=== PATIENT | female | born 1945 ===

== ENCOUNTER 2020-09-05 06:12 | Emergency (ER) | END 2020-09-05 06:20 | LOC: ERS 06:12 | DX: Z46.59 Encounter for fitting and adjustment of other gastrointestinal appliance and device (principal); E03.9 Hypothyroidism, unspecified; Z79.82 Long term (current) use of aspirin; Z79.899 Other long term (current) drug therapy | CPT/HCPCS: 43762 ==

== ENCOUNTER 2021-08-25 14:14 | Inpatient (IN) | payer MEDICARE, MEDICAID ==
[2021-08-25] MEDS ORDERED: Iopamidol 30 ML ONE (18:17)
[2021-08-25] MEDS ORDERED: fentaNYL Citrate/PF 100 MCG/2 ML SYRINGE ONE (18:27)
[2021-08-25] MEDS ORDERED: PROPOFOL 200 MG/20 ML VIAL ONE (18:35)
[2021-08-25] MEDS ORDERED: Ondansetron PF 4 MG/2 ML Vial ONE (18:35)
[2021-08-25] MEDS ORDERED: Dexamethasone 20 MG/5 ML VIAL ONE (18:35)
[2021-08-25] MEDS ORDERED: Lidocaine 1% PF 5 ML VIAL ONE (18:35)
[2021-08-25] MEDS ORDERED: PHENYLEPHRINE-NS 100 MCG/ML 10 ML SYRINGE ONE (18:35)
[2021-08-25] MEDS ORDERED: Metoprolol Tartrate 5 MG/5 ML VIAL ONE (21:02)
[2021-08-25] MEDS ORDERED: Metoprolol Tartrate 5 MG/5 ML VIAL IVP PRN (21:10)
[2021-08-25] MEDS ORDERED: Ondansetron PF 4 MG/2 ML Vial IVP PRN (21:15)
[2021-08-25] MEDS ORDERED: Ondansetron ODT 4 MG TAB PO PRN (21:15)
[2021-08-25] MEDS ORDERED: Acetaminophen 650 MG Suppository PR PRN (21:15)
[2021-08-25] MEDS ORDERED: Sodium Chloride 0.9% 1,000 ML IV SCH (21:30)
[2021-08-25] MEDS ORDERED: Piperacillin/Tazobactam 3.375 GM in Sodium Chloride 0.9% 100 ML IVPB SCH (23:59)
[2021-08-26] MEDS ORDERED: Metoprolol Tartrate 5 MG/5 ML VIAL IVP SCH (03:15)
[2021-08-26] MEDS ORDERED: Piperacillin/Tazobactam 3.375 GM in Sodium Chloride 0.9% 100 ML IVPB SCH (04:00)
[2021-08-26 04:49] LABS: Anion Gap 17 mmol/L (10-20); BUN (Urea Nitrogen) 51 mg/dL (9.8-20.1); Calc. Creatinine Clearance 25 mL/min (70-130); Carbon Dioxide 15 mmol/L (23-31); Chloride 115 mmol/L (98-107); Glucose 111 mg/dL (83-110); Potassium 5.6 mmol/L (3.5-5.1); Sodium 141 mmol/L (136-145)
[2021-08-26 05:15] LABS: Band 21 % (5-11); Hemoglobin 9.3 g/dL (12.0-16.0); Lymphocytes 1 % (21-51); MDiff Complete? YES; Macrocytosis MODERATE=16-30 cells (100X) (0-5/hpf); Mean Corpuscular HGB CONC 30.8 g/dL (32.0-36.0); Mean Corpuscular Hemoglobin 33.5 pg (27.0-31.0); Mean Platelet Volume 8.8 fL (7.4-10.4); Metamyelocyte 4 % (0-0); Monocytes 6 % (0-10); Neutrophil 68 % (42-75); Ovalocytes SLIGHT = 2-5 cells (100X) (0-1/hpf); Platelet Count 172 thou/uL (130-400); Platelet Morphology Comment Appears Adequate; RBC Distribution Width 12.1 % (11.5-14.5); Red Blood Cell (RBC) Count 2.77 mill/uL (4.20-5.40)
[2021-08-26 07:01] LABS: Lactic Acid 2.1 mmol/L (0.5-2.2)
[2021-08-26] MEDS: Enoxaparin Sodium 30 MG/0.3 ML SYRINGE SC SCH (09:17)
[2021-08-26] MEDS: Cefepime 2 GM in Sodium Chloride 0.9% 100 ML IVPB SCH ×2 (11:54→23:40)
[2021-08-26] MEDS: Sodium Chloride 0.45% 1,000 ML IV SCH ×3 (11:54→22:43)
[2021-08-27 04:43] LABS: #Eosinphils 0.4 thou/uL (0.0-0.7); #Lymphocytes 1.2 thou/uL (1.20-3.40); #Monocytes 1.5 thou/uL (0.11-0.59); #Neutrophils 14.3 thou/uL (1.40-6.50); %Basophils 0.2 % (0.0-1.0); %Eosinophils 2.1 % (0.0-10.0); %Lymphocytes 7.2 % (21.0-51.0); %Monocytes 8.6 % (0.0-10.0); Hemoglobin 8.6 g/dL (12.0-16.0); Mean Corpuscular HGB CONC 31.5 g/dL (32.0-36.0); Mean Corpuscular Hemoglobin 33.7 pg (27.0-31.0); Mean Platelet Volume 8.9 fL (7.4-10.4); Platelet Count 169 thou/uL (130-400); RBC Distribution Width 12.2 % (11.5-14.5); Red Blood Cell (RBC) Count 2.56 mill/uL (4.20-5.40); White Blood Cell (WBC) Count 17.4 thou/uL (4.8-10.8)
[2021-08-27 05:05] LABS: Anion Gap 12 mmol/L (10-20); BUN (Urea Nitrogen) 44 mg/dL (9.8-20.1); Calc. Creatinine Clearance 30 mL/min (70-130); Calcium 8.8 mg/dL (7.8-10.44); Carbon Dioxide 19 mmol/L (23-31); Chloride 116 mmol/L (98-107); Glucose 76 mg/dL (83-110); Sodium 143 mmol/L (136-145)
[2021-08-27] MEDS: Enoxaparin Sodium 30 MG/0.3 ML SYRINGE SC SCH (08:14)
[2021-08-27] MEDS: Sodium Chloride 0.45% 1,000 ML IV SCH ×2 (08:27→19:43)
[2021-08-27] MEDS: Cefepime 2 GM in Sodium Chloride 0.9% 100 ML IVPB SCH ×2 (11:58→23:17)
[2021-08-27] MEDS: Acetaminophen 325 MG TAB PO PRN (12:19)
[2021-08-27 12:28] VITALS: BMI 31.6
[2021-08-27] MEDS ORDERED: Dextrose 50% Abboject 50 ML SYRINGE ONE (16:43)
[2021-08-28 04:50] LABS: Anion Gap 13 mmol/L (10-20); BUN (Urea Nitrogen) 33 mg/dL (9.8-20.1); Calc. Creatinine Clearance 40 mL/min (70-130); Calcium 8.2 mg/dL (7.8-10.44); Carbon Dioxide 17 mmol/L (23-31); Chloride 115 mmol/L (98-107); Glucose 151 mg/dL (83-110); Potassium 3.7 mmol/L (3.5-5.1); Sodium 141 mmol/L (136-145)
[2021-08-28] MEDS: Sodium Chloride 0.45% 1,000 ML IV SCH (06:38)
[2021-08-28] MEDS ORDERED: Diltiazem HCl 0 ML ONE (07:42)
[2021-08-28 07:45] LABS: #Basophils 0.1 thou/uL (0.0-0.2); #Eosinphils 0.4 thou/uL (0.0-0.7); #Lymphocytes 1.4 thou/uL (1.20-3.40); #Monocytes 1.2 thou/uL (0.11-0.59); #Neutrophils 7.6 thou/uL (1.40-6.50); %Basophils 0.6 % (0.0-1.0); %Eosinophils 3.8 % (0.0-10.0); %Lymphocytes 13.2 % (21.0-51.0); %Monocytes 11.5 % (0.0-10.0); %Neutrophils 70.9 % (42.0-75.0); Hemoglobin 8.9 g/dL (12.0-16.0); Mean Corpuscular HGB CONC 31.2 g/dL (32.0-36.0); Mean Corpuscular Hemoglobin 32.5 pg (27.0-31.0); Mean Platelet Volume 8.6 fL (7.4-10.4); Platelet Count 167 thou/uL (130-400); RBC Distribution Width 12.3 % (11.5-14.5); Red Blood Cell (RBC) Count 2.73 mill/uL (4.20-5.40); White Blood Cell (WBC) Count 10.8 thou/uL (4.8-10.8)
[2021-08-28] MEDS: Enoxaparin Sodium 30 MG/0.3 ML SYRINGE SC SCH (08:11)
[2021-08-28] MEDS: Cefepime 2 GM in Sodium Chloride 0.9% 100 ML IVPB SCH ×2 (12:10→23:56)
[2021-08-29] MEDS: Enoxaparin Sodium 30 MG/0.3 ML SYRINGE SC SCH (08:58)
[2021-08-29 09:50] LABS: Anion Gap 14 mmol/L (10-20); BUN (Urea Nitrogen) 26 mg/dL (9.8-20.1); Calc. Creatinine Clearance 45 mL/min (70-130); Calcium 8.5 mg/dL (7.8-10.44); Carbon Dioxide 17 mmol/L (23-31); Chloride 115 mmol/L (98-107); Glucose 152 mg/dL (83-110); Potassium 3.6 mmol/L (3.5-5.1); Sodium 142 mmol/L (136-145)
[2021-08-29] MEDS: Cefepime 2 GM in Sodium Chloride 0.9% 100 ML IVPB SCH ×2 (13:41→23:18)
[2021-08-29] MEDS: Metoprolol Tartrate 50 MG TAB PER TUBE SCH (20:19)
[2021-08-29] MEDS: Acetaminophen 325 MG TAB PO PRN (20:19)
[2021-08-29] MEDS ORDERED: Atorvastatin Calcium 20 MG TAB PER TUBE SCH (21:00)
[2021-08-30] MEDS ORDERED: Aspirin 325 MG TAB PER TUBE SCH (09:00)
[2021-08-30] MEDS: Metoprolol Tartrate 50 MG TAB PER TUBE SCH (09:19)
[2021-08-30] MEDS: Enoxaparin Sodium 30 MG/0.3 ML SYRINGE SC SCH (09:20)
[2021-08-30] MEDS: Cefepime 2 GM in Sodium Chloride 0.9% 100 ML IVPB SCH (11:06)
[2021-08-30 15:03] VITALS: BP 156/77; TEMP 98.3
== END 2021-08-30 16:33 | DRG 853 ==
LOC: SJJU 20:59 → SURG A 21:12 → IMCU/EMU 23:32 → T4-B 08-28 16:10
PROVIDERS: ADMIT Internal Medicine; ATTEND Internal Medicine
PROC: 0T768DZ Dilation of Right Ureter with Intraluminal Device, Via Natural or Artificial Opening Endoscopic (ICD-10-PCS; principal; 2021-08-25)
PROC: BT1D1ZZ Fluoroscopy of Right Kidney, Ureter and Bladder using Low Osmolar Contrast (ICD-10-PCS; 2021-08-25)
DX: A41.9 Sepsis, unspecified organism (principal); J96.01 Acute respiratory failure with hypoxia; G82.50 Quadriplegia, unspecified; N13.6 Pyonephrosis; N17.9 Acute kidney failure, unspecified; E87.2 Acidosis; N30.80 Other cystitis without hematuria; G40.909 Epilepsy, unspecified, not intractable, without status epilepticus; E78.5 Hyperlipidemia, unspecified; E03.9 Hypothyroidism, unspecified; F03.90 Unspecified dementia, unspecified severity, without behavioral disturbance, psychotic disturbance, mood disturbance, and anxiety; E87.5 Hyperkalemia; D50.9 Iron deficiency anemia, unspecified; R65.20 Severe sepsis without septic shock; N18.30 Chronic kidney disease, stage 3 unspecified; E11.22 Type 2 diabetes mellitus with diabetic chronic kidney disease; D63.1 Anemia in chronic kidney disease; I12.9 Hypertensive chronic kidney disease with stage 1 through stage 4 chronic kidney disease, or unspecified chronic kidney disease; M62.49 Contracture of muscle, multiple sites; E11.649 Type 2 diabetes mellitus with hypoglycemia without coma; I69.365 Other paralytic syndrome following cerebral infarction, bilateral; Z79.899 Other long term (current) drug therapy; Z74.01 Bed confinement status; Z93.1 Gastrostomy status; I69.320 Aphasia following cerebral infarction
CPT/HCPCS: 36415; 36416; 74420; 76000; 80048; 82607; 82746; 83605; 85025; C2617; J0692; J1100; J1650; J2405; J2543; J2704; J3490; J7050; J7999; Q9967

== ENCOUNTER 2021-09-26 09:44 | Day surgery (SDC) | payer MEDICARE, MEDICAID ==
[2021-09-09 10:48] VITALS: BMI 32.3
[2021-09-26] MEDS ORDERED: Sodium Chloride 0.9% 0 ML ONE (10:45)
[2021-09-26] MEDS ORDERED: cefTRIAXone\\ROCEPHIN 2 GM VIAL ONE ×2 (10:45→12:07)
[2021-09-26 10:51] LABS: EPI 122 sec (67-192)
[2021-09-26 10:52] LABS: Platelet Count 219 thou/uL (130-400)
[2021-09-26] MEDS ORDERED: fentaNYL Citrate/PF 100 MCG/2 ML SYRINGE ONE (12:00)
[2021-09-26] MEDS ORDERED: Famotidine/PF 20 mg/2ml Vial ONE (12:00)
[2021-09-26] MEDS ORDERED: SUGAMMADEX SODIUM 200 MG/2 ML VIAL ONE (12:00)
[2021-09-26] MEDS ORDERED: Sodium Chloride 0.9% 100 ML ONE (12:07)
[2021-09-26] MEDS ORDERED: Phenylephrine 10 MG/ML VIAL ONE (12:16)
[2021-09-26] MEDS ORDERED: Rocuronium Bromide 10 MG/ML (10ML VIAL) ONE (12:16)
[2021-09-26] MEDS ORDERED: Lidocaine 1% PF 5 ML VIAL ONE (12:16)
[2021-09-26] MEDS ORDERED: Succinylcholine 200 MG/10 ml SYRINGE FS ONE (12:16)
[2021-09-26] MEDS ORDERED: PROPOFOL 200 MG/20 ML VIAL ONE (12:16)
[2021-09-26] MEDS ORDERED: Ondansetron PF 4 MG/2 ML Vial ONE (12:16)
[2021-09-26] MEDS ORDERED: Ondansetron HCl/PF 4 MG/2 ML Vial IVP PRN (13:00)
[2021-09-26] MEDS ORDERED: Ioversol 68 % 50 ML VIAL ONE (13:09)
== END 2021-09-26 21:47 | disposition home or self-care (01) ==
LOC: SDC 09:44
PROVIDERS: ATTEND Urology
PROC: 0TF3XZZ Fragmentation in Right Kidney Pelvis, External Approach (ICD-10-PCS; principal; 2021-09-26)
PROC: BT1DZZZ Fluoroscopy of Right Kidney, Ureter and Bladder (ICD-10-PCS; 2021-09-26)
DX: N20.0 Calculus of kidney (principal); I10 Essential (primary) hypertension; E11.9 Type 2 diabetes mellitus without complications; Z79.82 Long term (current) use of aspirin; Z79.899 Other long term (current) drug therapy; Z93.1 Gastrostomy status
CPT/HCPCS: 36415; 85576; J0696; J2370; J2405; J2704; J3490; Q9967; S0028